=== PATIENT | male | born 1960 | race Caucasian/White ===

== ENCOUNTER 2022-05-03 08:54 | Outpatient (CLI) | payer OTHER, SELFPAY ==
[2022-05-03 15:16] LABS: Albumin* 4.1 g/dL (3.3-5.0); Chloride* 106 mmol/L (96-114); Potassium* 4.6 mmol/L (3.6-5.1); Sodium* 137 mmol/L (135-149)
[2022-05-03 15:18] LABS: Cholesterol* 186 mg/dL (90-199)
[2022-05-03 15:19] LABS: Alanine Aminotransferase* 34 U/L (4-50); Alkaline Phosphatase* 96 U/L (40-150); Aspartate Amino Transferase* 33 U/L (12-35); Bilirubin Total* 0.7 mg/dL (0.1-1.5); Blood Urea Nitrogen* 12 mg/dL (7-30); Calcium* 8.9 mg/dL (8.4-10.6); Carbon Dioxide* 25 mmol/L (20-32); Creatinine* 0.9 mg/dL (0.5-1.5); Estimated Glomerular Filt Rate 97 ml/min; Glucose* 116 mg/dL (60-115); Triglycerides* 113 mg/dL (40-149)
[2022-05-03 15:20] LABS: HDL Cholesterol* 51 mg/dL (>=40); LDL Cholesterol Calculated 112 mg/dL (<100)
[2022-05-03 15:48] LABS: PSA Screen* 1.05 ng/mL (0.10-4.00)
== END 2022-05-03 08:55 | disposition home or self-care (01) ==
PROVIDERS: PCP Internal Medicine; Visit Provider Internal Medicine
DX: Z00.00 Encounter for general adult medical examination without abnormal findings (principal); E78.5 Hyperlipidemia, unspecified; E66.9 Obesity, unspecified; Z12.5 Encounter for screening for malignant neoplasm of prostate
CPT/HCPCS: 80053; 80061; 84153